=== PATIENT | male | born 1970 | race American Indian/Alaskan Native ===

== ENCOUNTER 2018-02-06 00:40 | Emergency (ER) | payer OTHER ==
[2018-02-06] MEDS ORDERED: ASPIRIN PO ONE (01:08)
--- NOTE | 2018-02-06 02:03 | XRay Report ---
FINAL REPORT EXAM: XR CHEST ROUTINE 2V HISTORY: cp,jorge TECHNIQUE: PA and lateral views of the chest were submitted. FINDINGS: Heart size and mediastinum appear normal. The lungs are clear. The lungs are not congested. Pleural fluid is not seen. The skeletal structures are well-maintained. IMPRESSION: Within normal limits.
--- NOTE | 2018-02-06 02:03 | XRay Report ---
FINAL REPORT EXAM: XR WRIST 2V LT HISTORY: swollen left wrist TECHNIQUE: AP and lateral views of the left wrist were submitted. FINDINGS: There is an acute nondisplaced cortical fracture along the ventral margin of the distal metaphysis of the radius. The articular surface is not involved. The adjacent ulna appears normal. The carpal bones appear normal. The soft tissues otherwise are unremarkable. IMPRESSION: Acute nondisplaced cortical fracture along the ventral margin of the distal metaphysis of the radius.
[2018-02-06 02:18] LABS: Basophils % (Auto) 0.7 % (0.0-1.8); Eosinophils % (Auto) 0.6 % (0.0-4.3); Hematocrit 44.6 % (35.5-45.6); Hemoglobin 14.8 gm/dl (11.8-15.2); Lymphocytes # (Auto) 1.6 K/mm3 (1.2-5.4); Lymphocytes % (Auto) 13.1 % (13.4-35.0); Mean Corpuscular HGB Conc 33 % (32-34); Mean Corpuscular Hemoglobin 26 pg (28-32); Mean Corpuscular Volume 79 fl (84-94); Monocytes # (Auto) 0.7 K/mm3 (0.0-0.8); Monocytes % (Auto) 5.3 % (0.0-7.3); Platelet Count 225 K/mm3 (140-440); Red Blood Count 5.68 M/mm3 (3.65-5.03); Red Cell Distribution Width 13.7 % (13.2-15.2)
[2018-02-06 02:19] LABS: Basophils # (Auto) 0.1 K/mm3 (0.0-0.1); Eosinophils # (Auto) 0.1 K/mm3 (0.0-0.4)
[2018-02-06 02:46] LABS: BUN/Creatinine Ratio 10; Blood Urea Nitrogen 12 mg/dL (9-20); Calcium 9.5 mg/dL (8.4-10.2); Hemolysis Index 9
[2018-02-06 03:11] LABS: Bilirubin,Urine NEG (Negative); Blood,Urine SM (Negative); Color,Urine Yellow (Yellow); Hyaline Casts,Urine 4 /LPF; Mucus,Urine FEW /HPF; Protein,Urine <15 mg/dL mg/dL (Negative); Urobilinogen,Urine < 2.0 mg/dL (<2.0)
[2018-02-06] MEDS ORDERED: NORCO 5/325 PO ONE (07:15)
[2018-02-06] MEDS ORDERED: TORADOL IM ONE (07:15)
[2018-02-06] MEDS ORDERED: ASPIRIN ONE (07:36)
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
[2018-02-06 10:10] VITALS: BP 105/67
== END 2018-02-06 10:10 | disposition home or self-care (01) ==
LOC: ED 00:40
DX: S52.592A Other fractures of lower end of left radius, initial encounter for closed fracture (principal); S62.002A Unspecified fracture of navicular [scaphoid] bone of left wrist, initial encounter for closed fracture; R07.89 Other chest pain; I10 Essential (primary) hypertension; Y08.89XA Assault by other specified means, initial encounter; Y93.89 Activity, other specified; Y99.8 Other external cause status; Y92.89 Other specified places as the place of occurrence of the external cause
CPT/HCPCS: 29125; 36415; 71046; 73100; 80048; 81001; 84484; 85025; 93005; 93010; 96372; 99285; J1885